=== PATIENT | male | born 1990 | race Caucasian/White ===

== ENCOUNTER 2020-01-18 21:42 | Emergency (ER) | payer SELFPAY ==
[~2020-01-18] VITALS: Ht 167.6 cm; Wt 79.8 kg
[2020-01-18 21:46] VITALS: BP 144/79
--- NOTE | 2020-01-18 21:53 | NUR ---
PT TRIAGED AND BACK TO LOBBY.
--- NOTE | 2020-01-18 22:17 | NUR ---
PT AMBULATED TO [facility] WITH STEADY GAIT.
[2020-01-18 22:27] VITALS: BP 144/79
--- NOTE | 2020-01-18 22:27 | NUR ---
Patient discharged with v/s stable. Written and verbal after care instructions given and explained. Patient verbalized understanding. Ambulatory with steady gait. All questions addressed prior to discharge. Advised to follow up with PMD.
== END 2020-01-18 22:27 | disposition home or self-care (01) ==
LOC: MED 21:42
DX: R11.2 Nausea with vomiting, unspecified (principal); F12.10 Cannabis abuse, uncomplicated
CPT/HCPCS: 99281